=== PATIENT | male | born 1995 | race Two or more races ===

== ENCOUNTER 2019-03-06 20:11 | Emergency (ER) | payer SELFPAY ==
[~2019-03-06] VITALS: Ht 172.7 cm; Wt 100.0 kg
[2019-03-06 20:14] VITALS: BP 140/83
== END 2019-03-06 20:51 | disposition home or self-care (01) ==
LOC: ER 20:11
DX: R55 Syncope and collapse (principal); R11.2 Nausea with vomiting, unspecified; I10 Essential (primary) hypertension
CPT/HCPCS: 99283